=== PATIENT | female | born 1970 | race Caucasian/White ===

== ENCOUNTER 2016-07-21 21:44 | Emergency (ER) | payer MEDICAID ==
[2016-07-22] MEDS ORDERED: SODIUM CHLORIDE 0.9% 1,000 ML ONE (01:18)
[2016-07-22] MEDS ORDERED: POTASSIUM CHLOR 10MEQ -ED ONLY 50 ML IV ONE (01:25)
[2016-07-22] MEDS ORDERED: KCL CR 20 MEQ TAB PO ONE (01:25)
== END 2016-07-22 03:54 | disposition home or self-care (01) ==
LOC: ER 21:44
CPT/HCPCS: 36415; 80047; 80053; 81001; 84439; 84443; 84484; 85014; 85025; 85610; 93005; 96361; 96365